=== PATIENT | female | born 1990 | race Caucasian/White ===

== ENCOUNTER 2018-09-27 20:12 | Emergency (ER) | payer OTHER ==
[2018-09-27 20:23] VITALS: BP 129/79; PULSE 84; RESP 14; TEMP 98.7; O2SAT 98
--- NOTE | 2018-09-27 20:29 | C.PDOC ---
History Of Present Illness 28 year old female, with no significant past medical history, presents to the ED for evaluation after sustaining a dog bite at around 1130 today. 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 Patient states the dog was barking while still with the general dentist/owner and jumped on patient. Patient has questionable bite vs nail lucina to her abdomen area and left arm. Patient's Tetanus immunization status is unknown. She states the dog was last immunized for rabies in May 2018. Patient denies fever, chills or any other injuries at this time. Time Seen by Provider: 09/27/18 20:26 Chief Complaint (Nursing): Bite History Per: Patient History/Exam Limitations: no limitations Onset/Duration Of Symptoms: Hrs Current Symptoms Are (Timing): Still Present Additional History Per: Patient - Animal Bite Reports Animal Appears: Well Reports Animal's Immunization Status: UTD Past Medical History Reviewed: Historical Data, Nursing Documentation, Vital Signs Vital Signs: Last Vital Signs Temp 98.7 F 09/27/18 20:19 Pulse 84 09/27/18 20:19 Resp 14 09/27/18 20:19 BP 129/79 09/27/18 20:19 Pulse Ox 98 09/27/18 20:19 - Medical History PMH: No Chronic Diseases Surgical History: No Surg Hx Family History: States: Unknown Family Hx - Social History Hx Alcohol Use: Yes Hx Substance Use: No - Immunization History Hx Tetanus Toxoid Vaccination: No Hx Influenza Vaccination: No Hx Pneumococcal Vaccination: No Review Of Systems Constitutional: Negative for: Fever, Chills Skin: Positive for: Other (dog bite ) Physical Exam - Physical Exam Appears: Non-toxic, No Acute Distress Skin: Normal Color, Warm, Dry, Other (two, 0.5cm abrasions to abdomen, two abrasions to left arm. one puncture lucina on left arm that is tender to palpation with some mild surrounding ecchymosis. no palpable foreign body ) Head: Atraumatic Extremity: Normal ROM, Capillary Refill (less than 2 seconds ) Neurological/Psych: Normal Speech, Normal Cognition ED Course And Treatment O2 Sat by Pulse Oximetry: 98 (on RA) Pulse Ox Interpretation: Normal Medical Decision Making Medical Decision Making: Progress: Tylenol PO, Augmentin PO and Tetanus IM administered. Disposition Counseled Patient/Family Regarding: Diagnosis, Need For Followup, Rx Given - Disposition Referrals: [facility] [Outside] Disposition: HOME/ ROUTINE Disposition Time: 21:36 Condition: GOOD Additional Instructions: Keep wounds clean and dry. Take antibiotics until complete. Tylenol or Motrin for pain. FOllow up in medical clinic. Return to ER for any signs of infection. Prescriptions: Acetaminophen [Tylenol 325mg tab] 650 mg PO Q4 #50 tab Amoxicillin/Clavulanate [Augmentin 875 MG-125 MG] 1 tab PO BID #14 tab Instructions: Animal Bites (DC) Forms: [employer] (Setswana), General Discharge Instructions - Clinical Impression Clinical Impression: Dog bite of left arm - PA / STRUCTURAL FITTER / Resident Statement MD/DO has reviewed & agrees with the documentation as recorded. - Scribe Statement The provider has reviewed the documentation as recorded by the Scribe (Halina Jhaveri) All medical record entries made by the Scribe were at my direction and personally dictated by me. I have reviewed the chart and agree that the record accurately reflects my personal performance of the history, physical exam, medical decision making, and the department course for this patient. I have also personally directed, reviewed, and agree with the discharge instructions and disposition.
[2018-09-27] MEDS ORDERED: Amoxicillin-Clav 875-125 mg Tab PO STA (20:39)
[2018-09-27] MEDS ORDERED: Tdap Vaccine 0.5 ml Vial (10-64 yrs) IM ONE ×2 (20:39→20:57)
[2018-09-27] MEDS ORDERED: Amoxicillin-Clav 875-125 mg Tab PO ONE (20:56)
== END 2018-09-27 21:45 | disposition home or self-care (01) ==
LOC: C.ER 20:12
DX: S41.152A Open bite of left upper arm, initial encounter (principal); W54.0XXA Bitten by dog, initial encounter; Y93.K1 Activity, walking an animal